=== PATIENT | male | born 1955 | race Caucasian/White ===

== ENCOUNTER 2024-04-05 16:11 | Inpatient (IN) | payer OTHER ==
[2024-04-05 17:32] VITALS: BMI 34.9
[2024-04-05] MEDS ORDERED: POLYETHYLENE GLYCOL (HEALTHYLAX) 3350 17 GM PACKET PO PRN (18:37)
[2024-04-05] MEDS ORDERED: NICOTINE POLACRILEX 2 MG LOZENGE BC PRN (18:37)
[2024-04-05] MEDS ORDERED: LOPERAMIDE HCL 2 MG CAPSULE PO PRN (18:37)
[2024-04-05] MEDS ORDERED: MAGNESIUM HYDROX 2400MG/30ML ORAL SUSPENSION 30 ML CUP PO PRN (18:37)
[2024-04-05] MEDS ORDERED: IBUPROFEN 600 MG TABLET (FP) PO PRN (18:37)
[2024-04-05] MEDS ORDERED: NICOTINE POLACRILEX 2 MG GUM BUC PRN (18:37)
[2024-04-05] MEDS ORDERED: IBUPROFEN 400 MG TABLET (FP) PO PRN (18:37)
[2024-04-05] MEDS ORDERED: BENZONATATE 200 MG CAPSULE PO PRN (18:37)
[2024-04-05] MEDS ORDERED: MAG HYDROX/AL HYDROX/SIMETH 30 ML UNIT-DOSE CUP PO PRN (18:37)
[2024-04-05] MEDS ORDERED: ALBUTEROL SO4 HFA INHALER IH PRN (20:05)
[2024-04-05] MEDS: BUDESONIDE/FORMETEROL FUMARATE 80/4.5 mcg INHALER IH SCH (21:34)
[2024-04-05] MEDS: THIAMINE 100 MG TABLET PO SCH (21:35)
[2024-04-05] MEDS: ASPIRIN COATED 81 MG TABLET.EC PO SCH (21:35)
[2024-04-05] MEDS: MELATONIN 5 MG TABLETS PO SCH (21:35)
[2024-04-06] MEDS: amLODIPine BESYLATE 5 MG TABLET (FP) PO SCH (10:19)
[2024-04-06] MEDS: LISINOPRIL 20 MG TABLET PO SCH (10:19)
[2024-04-06] MEDS: PRENATAL VITAMINS W/ FOLIC ACID TABLET (FP) PO SCH (10:19)
[2024-04-06 12:10] LABS: HEMATOCRIT 43.6 % (35.4-49); HEMOGLOBIN 14.3 GM/dL (11.7-16.9); MCH 30.5 pg (25.7-33.7); MCHC 32.8 g/dl (32.0-35.9); MEAN CELL VOLUME 93.1 fl (80-96); PLATELET COUNT 168 10^3/uL (134-434); RBC 4.68 M/mm3 (4.00-5.60); RDW 13.5 % (11.9-15.9); WHITE BLOOD COUNT 6.8 K/mm3 (4.0-10.0)
[2024-04-06 12:13] LABS: URINE APPEARANCE CLEAR; URINE BILIRUBIN NEGATIVE (NEGATIVE); URINE COLOR YELLOW; URINE GLUCOSE (UA) NEGATIVE (NEGATIVE); URINE KETONE NEGATIVE (NEGATIVE); URINE LEUK ESTERASE NEGATIVE (NEGATIVE); URINE NITRITE NEGATIVE (NEGATIVE); URINE PROTEIN NEGATIVE (NEGATIVE); URINE UROBILINOGEN 0.2 mg/dL (0.2-1.0)
[2024-04-06 12:31] LABS: POTASSIUM 4.5 mmol/L (3.5-5.1)
[2024-04-06 12:33] LABS: ALBUMIN 3.4 g/dl (3.4-5.0); BLOOD UREA NITROGEN 26.2 mg/dL (7-18); CALCIUM 8.8 mg/dL (8.5-10.1)
[2024-04-06 12:37] LABS: CREATININE 0.9 mg/dL (0.55-1.3)
[2024-04-06 12:38] LABS: BILIRUBIN,TOTAL 0.6 mg/dL (0.2-1)
[2024-04-07] MEDS: guaiFENesin 600 MG TABLET.ER (FP) PO PRN (11:47)
[2024-04-07] MEDS: BENZOCAINE/MENTHOL (CHLORASEPTIC ) LOZENGE MM PRN (11:48)
[2024-04-07] MEDS: BACLOFEN 10 MG TABLET (FP) PO SCH (14:28)
[2024-04-07] MEDS: CARBAMIDE PEROXIDE 6.5% OTIC 15 ML BOTTLE AU SCH (14:49)
[2024-04-08] MEDS ORDERED: NALOXONE (NYS OPIOID OVERDOSE PROGRAM) 4 MG/0.1 ML SPRAY NS ONE (13:00)
[2024-04-08] MEDS ORDERED: NALOXONE (NYS OPIOID OVERDOSE PROGRAM) 4 MG/0.1 ML SPRAY NS PRN ×2 (13:00→14:49)
[2024-04-12] MEDS: FLU VACCINE (FLULAVAL) PF 45 MCG/0.5 ML SYRINGE 2024-2025 IM ONE (12:19)
[2024-04-12] MEDS: PNEUMOC 20-VAL CONJ-DIP CRM/PF 0.5 ML SYRINGE IM ONE (12:22)
[2024-04-19 06:27] VITALS: BP 146/65; PULSE 60; RESP 16; TEMP 97.1
[2024-04-19] MEDS: ACETAMINOPHEN 325 MG TABLET (FP) PO PRN (08:52)
== END 2024-04-19 09:32 | disposition home or self-care (01) | DRG 895 ==
LOC: YASAS 16:11 → Y3W 20:08
PROVIDERS: ADMIT Allergy & Immunology; ATTEND Psychiatry & Neurology Pain Medicine
PROC: HZ42ZZZ Group Counseling for Substance Abuse Treatment, Cognitive-Behavioral (ICD-10-PCS; principal; 2024-04-05)
DX: F14.20 Cocaine dependence, uncomplicated (principal); F10.10 Alcohol abuse, uncomplicated; F17.210 Nicotine dependence, cigarettes, uncomplicated; G47.00 Insomnia, unspecified; G56.02 Carpal tunnel syndrome, left upper limb; H61.23 Impacted cerumen, bilateral; I10 Essential (primary) hypertension; I25.2 Old myocardial infarction; J44.9 Chronic obstructive pulmonary disease, unspecified
CPT/HCPCS: 36415; 80053; 80305; 81003; 82962; 85027; 86780; 86803; 90656; 90677; 93005; 93010; G0008; G0009; J0475